=== PATIENT | male | born 1945 | race Caucasian/White ===

== ENCOUNTER 2021-08-12 15:08 | Observation (INO) | payer BC, MEDICARE, SELFPAY ==
[2021-08-12] VITALS (8 sets, daily range): BP systolic 121–148; BP diastolic 67–92; PULSE 74–89; RESP 13–18; TEMP 36.7–37.5; O2SAT 95–96; BMI 25.3; BMI 22.8
--- NOTE | 2021-08-12 16:02 | EKG12_ITS ---
Test Reason : AMS Blood Pressure : / mmHG Vent. Rate : 084 BPM Atrial Rate : 084 BPM P-R Int : 134 ms QRS Dur : 078 ms QT Int : 350 ms P-R-T Axes : 030 032 026 degrees QTc Int : 413 ms Normal sinus rhythm Normal ECG Confirmed by SAURAV BIRMINGHAM MD ([id number]), associate editor JOSE HA ([id number]) on 08/18/2021 11:16:44 AM Referred By: PL Confirmed By:SAURVA BIRMINGHAM MD
--- NOTE | 2021-08-12 16:08 | EDS_ITS ---
HPI History of Present Illness Chief Complaint: Alt LOC Narrative Narrative: 76-year-old male presenting with his daughter for evaluation. Apparently he has been ill for the last 9 days. He tested positive for Covid last night at home with a rapid Covid test. Patient's daughter states that he had been eating and drinking fairly well and ambulating around the house. He has a cough and recurrent fever which is low-grade. This does respond to antipyretics. Patient is not reporting any chest pain. His daughter states that over the last 24 hours he has been worse. He seems generally weak. He is unable to get off of the toilet this afternoon. He has not had any nausea or vomiting. His last full meal was last evening. He denies any urinary complaints. He had diarrhea but this resolved. PFSH PFSH Allergy/AdvReac Type Severity Reaction Status Date / Time No Known Allergies Allergy Verified 08/12/21 15:15 Social History Smoking Status: Former smoker ROS ROS ED Constitutional Constitutional ED: Reports chills and fever(s) Eyes Eyes: Denies blurry vision or diplopia ENT ENT ED: Reports rhinorrhea Cardiovascular Cardiovascular: Denies chest pain or palpitations Respiratory/Chest Respiratory/Chest: Reports cough and dyspnea Gastrointestinal Gastrointestinal: Reports diarrhea; Denies abdominal pain, nausea or vomiting Genitourinary Genitourinary ED: Denies dysuria or hematuria Musculoskeletal Musculoskeletal: Reports myalgias; Denies arthralgias Integumentary Denies Abrasions or rash Neurologic Neurologic: Reports headache(s); Denies paresthesias or weakness EXAM Physical Exam Const Vital Signs: 08/12/21 15:09 08/12/21 15:13 08/12/21 15:27 Temperature 99.5 F H 99.5 F H Temperature Source Oral Oral Pulse Rate 85 87 Respiratory Rate 18 18 Respiratory Effort Normal Non-Labored Respiratory Pattern Normal Blood Pressure 127/70 H 127/70 H Blood Pressure Mean 89 89 Pulse Ox 96 96 Oxygen Delivery Method Room Air Room Air Oxygen Flow Rate (L/min) 08/12/21 16:23 08/12/21 18:12 08/12/21 20:26 Temperature 98.9 F 99.1 F Temperature Source Oral Oral Pulse Rate 83 89 80 Respiratory Rate 15 17 16 Respiratory Effort Respiratory Pattern Blood Pressure 131/69 H 142/87 H 148/92 H Blood Pressure Mean 89 105 110 Pulse Ox 95 96 95 Oxygen Delivery Method Warm Humidified Isolette Room Air Nasal Cannula Oxygen Flow Rate (L/min) 3 Positive well nourished General Appearance ED: NAD; Negative for pallor HEENT Reports dry mucous membranes atraumatic Mouth ED: Yes dry mucous membranes Mouth: dry mucous membranes Eyes PERRL and EOMs intact bilaterally Neck no lymphadenopathy, supple and no meningeal signs Resp normal respiratory effort Cardio regular rate and regular rhythm GI non-tender and non-distended Palpation: soft Psych mental status grossly normal Thought Process: normal thought process Skin General Skin Exam: Negative for jaundice or pallor Lesions: no lesions Rashes: no rashes MDM MDM MDM Narrative Medical decision making narrative: Patient presenting with confusion and fatigue. He is currently diagnosed with COVID-19. I obtained an EKG which is sinus rhythm with ventricular rate of 4 bpm without sign of ischemic change. Lungs are mostly clear to auscultation with some mild basilar crackles. No wheezing. Chest x-ray on my interpretation shows mild bilateral patchy infiltrates. Patient not requiring supplemental oxygen and his other vital signs are stable. Patient is leukopenic and lymphopenic. Patient's hemoglobin is 11.6 and I do not have a comparison for this. Platelets are also low at 77 and again I do not have a comparison. Creatinine slightly elevated 1.32 and BUN/creatinine ratio is elevated. Patient was given 500 cc of IV fluids. Lactic acid is negative at 1.4. LFTs are unremarkable. High-sensitivity troponin is 16. Based on patient's confusion and weakness I did discuss the patient with the hospitalist who will admit him for observation. Patient stable admission to floor. Impression: 1. COVID-19 pneumonitis 2. Delirium Lab Data Labs: Laboratory Results - last 24 hr 08/12/21 08/12/21 08/12/21 16:18 16:18 16:18 WBC 1.9 L RBC 3.09 L Hgb 11.6 L Hct 33.3 L MCV 107.8 H MCH 37.5 H MCHC 34.8 RDW Std Deviation 51.4 H RDW Coeff of Sebastian 13.0 Plt Count 77 L MPV 10.4 Immature Gran % (Auto) 0.500 Neut % (Auto) 76.0 H Lymph % (Auto) 17.8 L [place] % (Auto) 5.2 Eos % (Auto) 0.0 Baso % (Auto) 0.5 Absolute Neuts (auto) 1.5 L Absolute Lymphs (auto) 0.34 L Nucleated RBC % 0 Differential Comment SEE COMMENT Diff Path Review May foll Platelet Estimate MOD DEC RBC Morphology N CHROM Anisocytosis 1+ Macrocytosis 2+ Ovalocytes RARE Sodium 132 L Potassium 4.0 Chloride 100 Carbon Dioxide 24.0 Anion Gap 8 BUN 34 H Creatinine 1.32 H Estim Creat Clear Calc 43.12 Est GFR (MDRD) Af Amer 67 Est GFR (MDRD) Non-Af 56 L BUN/Creatinine Ratio 25.8 H Glucose 108 H Lactic Acid 1.4 Calcium 7.9 L Total Bilirubin 0.80 AST 82 H ALT 37 Alkaline Phosphatase 44 L Troponin I High Sens 16 Total Protein 6.7 Albumin 3.1 L Globulin 3.6 Albumin/Globulin Ratio 0.9 Radiography Diagnostic Testing: Clinical Impression(s) from Imaging Studies Chest X-Ray 08/12/21 16:42 IMPRESSION: Subtle patchy airspace opacities in the bilateral lower lobes may represent infection and/or edema. Electronically Signed: Morgan Gaviria MD at 17:30 EST Tel , Service support , Discharge Plan Triage Chief Complaint: Alt LOC ED Provider: Chris Saleh Dx/Rx/DC Orders Primary Care Provider: Sulaiman Chatman
[2021-08-12 16:28] LABS: Absolute Lymphocyte Count 0.34 X10^3/uL (0.83-4.51); Absolute Neutrophil Count 1.5 X10^3/uL (2.0-7.7); Basophil# 0.01 X10^3/uL; Basophil% 0.5 % (0-1); Hematocrit 33.3 % (40-54); Hemoglobin 11.6 g/dL (13.0-16.5); Lymphocyte # 0.34 X10^3/ul (0.83-4.51); Lymphocyte % 17.8 % (19-41); Mean Corp Hgb Conc 34.8 g/dL (32-36); Mean Corpuscular Hgb 37.5 pg (27.0-32.0); Mean Corpuscular Volume 107.8 fL (80-94); Mean Platelet Vol. 10.4 fl (6.2-12.0); Monocyte% 5.2 % (0-10); NRBC Flagged by Analyzer 0 % (0-5); Neutrophil # 1.45 X10^3/uL (2.7-7.7); POSITIVE COUNT YES; POSITIVE DIFFERENTIAL YES; POSITIVE MORPHOLOGY YES; Platelet Count 77 K/mm3 (150-450); RBC Distribution Width SD 51.4 fl (35.1-43.9); Red Blood Count 3.09 M/mm3 (4.6-6.2); White Blood Count 1.9 K/mm3 (4.4-11.0)
[2021-08-12 16:29] LABS: Differential Indicated SCAN CRITERIA MET
--- NOTE | 2021-08-12 16:42 | RAD_ITS ---
INDICATION: cough EXAMINATION/TECHNIQUE: X-RAY - XR Chest 1 View COMPARISON: None. FINDINGS: Subtle patchy airspace opacities in the bilateral lower lobes. The cardiomediastinal silhouette is unremarkable. No pleural effusion or pneumothorax. No acute osseous abnormalities. RAD/Chest 1 View (Portable) IMPRESSION: Subtle patchy airspace opacities in the bilateral lower lobes may represent infection and/or edema. Electronically Signed: Morgan Gaviria MD at 17:30 EST Tel , Service support ,
[2021-08-12 16:46] LABS: ALB/GLOB Ratio 0.9 RATIO (0.9-2.4); AST(SGOT) 82 U/L (15-37); Alanine Aminotransfer ALT/SGPT 37 U/L (16-61); Albumin, Serum 3.1 g/dL (3.2-5.0); Alkaline Phosphatase 44 U/L (45-117); Anion Gap 8 (5-15); BUN 34 mg/dL (7-18); BUN/Creat Ratio 25.8 RATIO (10-20); Calcium,Total 7.9 mg/dL (8.5-10.1); Chloride 100 mmol/L (98-107); Creatinine, Serum 1.32 mg/dL (0.70-1.30); EST Glomerular Filtration Rate 56 mL/min (>60); Est Glom Filt Rate - Afr Amer 67 mL/min (>60); Estimated Creatinine Clearance 43.12 ml/min; Globulin 3.6 g/dL (2.2-4.2); Glucose 108 mg/dL (74-106); Protein, Total 6.7 g/dL (6.4-8.2); Sodium Level 132 mmol/L (136-145); Troponin-I HS 16 pg/mL (3.0-78.0)
[2021-08-12 16:56] LABS: Lactic Acid 1.4 mmol/L (0.4-1.9)
[2021-08-12 17:00] LABS: Anisocytosis 1+; Platelet Estimate MOD DEC (ADEQ); Red Cell Morphology N CHROM NORMAL (NORM C&C)
[2021-08-12 17:01] LABS: Macrocytosis 2+; Ovalocyte RARE
--- NOTE | 2021-08-12 22:12 | PCS.PANDOC ---
PANDEMIC DOCUMENTATION INITIATED: Date: 03/29/2021 Time: 190
--- NOTE | 2021-08-13 01:20 | HP.PCM.HOS_ITS ---
HPI - General General Date of Admission: 08/12/21 HPI Narrative JOANNE ROSALES, is a 76 M who presents for evaluation of new onset delirium and weakness today. He has been ill for 9 days and did take it Covid test at home yesterday which returned positive. The patient lives at home and has been eating and drinking okay and was able to eat a regular meal last night however he did decline over the last day. He does not have any chest pain or trouble urinating. Did have diarrhea previously but does not have any now. He was admitted due to family concerns. 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 Upon work-up in the ED the patient did have a neutropenia of 1.9 which is typical for Covid. He had a hemoglobin of 11.6 with thrombocytopenia of 77, however baseline is unknown. His hyponatremia of 132 was also noted. PENDING SALE TO [facility] Medical History (Updated 08/13/21 @ 01:[address] Freddy Seth MD) Asthma Allergy/AdvReac Type Severity Reaction Status Date / Time No Known Allergies Allergy Verified 08/12/21 15:15 Social History Smoking Status: Former smoker ROS ROS Narrative no fevers/chills/cough/sob/cp/racing. No diarrhea but had history diarrhea. no trouble seeing hearing swallowing. No abdominal pain. No shortness of breath. Poor appetite. no falls or syncope. Vital Signs Vital Signs Vital Signs: 08/12/21 15:09 08/12/21 15:13 08/12/21 15:27 Temperature 99.5 F H 99.5 F H Temperature Source Oral Oral Pulse Rate 85 87 Respiratory Rate 18 18 Respiratory Effort Normal Non-Labored Respiratory Depth Respiratory Pattern Normal Blood Pressure 127/70 H 127/70 H Blood Pressure Mean 89 89 Blood Pressure Source Blood Pressure Position Blood Pressure Location Pulse Ox 96 96 Oxygen Delivery Method Room Air Room Air Oxygen Flow Rate (L/min) 08/12/21 16:23 08/12/21 18:12 08/12/21 20:26 Temperature 98.9 F 99.1 F Temperature Source Oral Oral Pulse Rate 83 89 80 Respiratory Rate 15 17 16 Respiratory Effort Respiratory Depth Respiratory Pattern Blood Pressure 131/69 H 142/87 H 148/92 H Blood Pressure Mean 89 105 110 Blood Pressure Source Blood Pressure Position Blood Pressure Location Pulse Ox 95 96 95 Oxygen Delivery Method Warm Humidified Isolette Room Air Nasal Cannula Oxygen Flow Rate (L/min) 3 08/12/21 21:16 08/12/21 22:45 08/12/21 22:47 Temperature 98.2 F 98.1 F Temperature Source Oral Oral Pulse Rate 79 74 Respiratory Rate 13 18 Respiratory Effort Normal Non-Labored Respiratory Depth Normal Respiratory Pattern Normal Blood Pressure 148/79 H 121/67 H Blood Pressure Mean 102 85 Blood Pressure Source Monitor Blood Pressure Position Semi-Fowlers Blood Pressure Location Left Arm Pulse Ox 96 96 96 Oxygen Delivery Method Nasal Cannula Room Air Room Air Oxygen Flow Rate (L/min) 3 Weight Weight: 155 lb 3.287 oz Body Mass Index (BMI) 22.8 Physical Exam Const alert General Appearance: cooperative HEENT normocephalic and head/scalp atraumatic Eyes PERRL and EOMs intact bilaterally Neck no lymphadenopathy Resp normal respiratory effort Cardio regular rate and regular rhythm GI normal to inspection, nondistended, normoactive bowel sounds, soft to palpation and non-tender Extremity normal to inspection Skin no rashes or lesions noted and no wounds Neuro Sensorium / Orientation: awake, alert and oriented to person Speech: speech normal Motor Exam: strength 5/5 throughout Psych affect normal Results Lab / Micro Data Result Diagrams: 08/12/21 16:18 08/12/21 16:18 Labs: Laboratory Results - last 24 hr 08/12/21 16:18: WBC 1.9 L, RBC 3.09 L, Hgb 11.6 L, Hct 33.3 L, MCV 107.8 H, MCH 37.5 H, MCHC 34.8, RDW Std Deviation 51.4 H, RDW Coeff of Sebastian 13.0, Plt Count 77 L, MPV 10.4, Immature Gran % (Auto) 0.500, Neut % (Auto) 76.0 H, Lymph % (Auto) 17.8 L, [place] % (Auto) 5.2, Eos % (Auto) 0.0, Baso % (Auto) 0.5, Absolute Neuts (auto) 1.5 L, Absolute Lymphs (auto) 0.34 L, Nucleated RBC % 0, Differential Comment SEE COMMENT, Diff Path Review May foll, Platelet Estimate MOD DEC, RBC Morphology N CHROM, Anisocytosis 1+, Macrocytosis 2+, Ovalocytes RARE 08/12/21 16:18: Sodium 132 L, Potassium 4.0, Chloride 100, Carbon Dioxide 24.0, Anion Gap 8, BUN 34 H, Creatinine 1.32 H, Estim Creat Clear Calc 43.12, Est GFR (MDRD) Af Amer 67, Est GFR (MDRD) Non-Af 56 L, BUN/Creatinine Ratio 25.8 H, Glucose 108 H, Calcium 7.9 L, Total Bilirubin 0.80, AST 82 H, ALT 37, Alkaline Phosphatase 44 L, Troponin I High Sens 16, Total Protein 6.7, Albumin 3.1 L, Globulin 3.6, Albumin/Globulin Ratio 0.9 08/12/21 16:18: Lactic Acid 1.4 Micro: Microbiology 08/12/21 16:16 Nasal Secretion SARS-CoV-2 Antigen (Rapid) - Final SARS-CoV-2 (COVID 19) Radiology Impression Chest X-Ray 08/12/21 16:42 IMPRESSION: Subtle patchy airspace opacities in the bilateral lower lobes may represent infection and/or edema. Electronically Signed: Morgan Gaviria MD at 17:30 EST Tel , Service support , Assessment & Plan Assessment/Plan (1) Acute delirium: (2) COVID: (3) Generalized weakness: PLAN: Acute delerium due to COVID Generalized weakness. -No focal deficits -Patient was admitted due to family concerns about taking care of him at home -Does not appear toxic. -Fall precautions -Physical therapy, Occupational Therapy, and case management -Check urinalysis -Chest x-ray with a very small possibility of pneumonia however this is likely due to Covid and will hold on antibiotics at this time -Continue contact precautions -Not requiring oxygen at this time, no indication for dexamethasone -Tylenol & Zofran prn -intensive nutritional support -Give 500 ml IV NS fluid on floor. Hyponatremia, asymptomatic -This is likely due to decreased p.o. intake -Monitor status post fluid resuscitation in the ED Thrombocytopenia -Monitor daily CBC and avoid heparin. Elevated Cr - monitor s/p fluid. May have underlying CKD Full code Full diet Lovenox 40 mg daily Freddy Seth MD Charges/Coding Visit Charges OBSV E&M: 48334 Initial observation care L2
[2021-08-13 03:59] VITALS: BP 124/70; PULSE 79; RESP 18; TEMP 37.6; O2SAT 95
[2021-08-13 04:00] VITALS: O2SAT 95
[2021-08-13 06:34] LABS: Absolute Neutrophil Count 0.9 X10^3/uL (2.0-7.7); Hematocrit 31.5 % (40-54); Hemoglobin 11.5 g/dL (13.0-16.5); Lymphocyte % 39.5 % (19-41); Mean Corp Hgb Conc 36.5 g/dL (32-36); Mean Corpuscular Hgb 38.9 pg (27.0-32.0); Mean Corpuscular Volume 106.4 fL (80-94); Monocyte# 0.18 X10^3/uL; Monocyte% 10.2 % (0-10); NRBC Flagged by Analyzer 0 % (0-5); Neutrophil # 0.87 X10^3/uL (2.7-7.7); Neutrophil % 49.2 % (47-70); POSITIVE COUNT YES; POSITIVE DIFFERENTIAL YES; Platelet Count 67 K/mm3 (150-450); RBC Distribution Width SD 50.6 fl (35.1-43.9); Red Blood Count 2.96 M/mm3 (4.6-6.2); White Blood Count 1.8 K/mm3 (4.4-11.0)
[2021-08-13 06:49] LABS: Differential Indicated SCAN CRITERIA MET
[2021-08-13 06:51] LABS: Atypical Lymphocyte 1+ %
[2021-08-13 06:59] LABS: Anion Gap 5 (5-15); BUN 25 mg/dL (7-18); BUN/Creat Ratio 22.9 RATIO (10-20); Chloride 103 mmol/L (98-107); Creatinine, Serum 1.09 mg/dL (0.70-1.30); EST Glomerular Filtration Rate 70 mL/min (>60); Est Glom Filt Rate - Afr Amer 84 mL/min (>60); Estimated Creatinine Clearance 55.62 ml/min; Glucose 101 mg/dL (74-106); Potassium 4.1 mmol/L (3.5-5.1); Sodium Level 133 mmol/L (136-145)
[2021-08-13 07:07] LABS: Bacteria 0 SEEN /hpf (None Seen); Mucous, Urine 0 SEEN /hpf (<or=2+); Red Blood Cells-Urine 0 SEEN /hpf (0-5); Squamous Epithelial Cells - UA 0 SEEN /hpf (0-5); White Blood Cells 0 SEEN /hpf (0-5)
[2021-08-13 07:11] LABS: Color, Urine Yellow (Yellow); Glucose, Dipstick Normal (Normal); Ketone-Dipstick 5 mg/dl (Negative); Leukocyte Esterase-Dipstick Negative /ul (Negative); Nitrite-Dipstick Negative (Negative); Occult Blood-Urine 25 /ul (Negative); Protein-Dipstick Negative (Negative); Urine Bilirubin Dipstick Negative (Negative); Urine Clarity Clear (Clear); Urine Urobilinogen Normal (Normal)
[2021-08-13 10:00] VITALS: BP 129/78; PULSE 76; RESP 16; TEMP 36.9; O2SAT 96
[2021-08-13] MEDS: 0.9% Normal Saline 1,000 ML 100 ML IV ×2 (10:39→20:38)
[2021-08-13] MEDS: Enoxaparin 40 MG/0.4 ML Syringe SC (10:39)
[2021-08-13] MEDS: 0.9% Saline Lock 10 ML Syringe IV (10:45)
--- NOTE | 2021-08-13 13:25 | CASEMGMT ---
RN CM BANQUET WAITER/WAITRESS YOLY placed call to pt's daughter, Nayely, for initial transition planning/care coordination assessment d/t pt having intermittent confusion. ORQUIDEA FREDERICK introduced self and role at [facility]. Care providers, pharmacy, and demographics verified/updated at this time. Pt tested + COVID @ [facility] PCP: Dr Chatman Specialists: none Preferred Pharmacy: [facility] Insurance: Dtr states [place] is primary and [employer] is secondary. Pt just retired from the [employer] in December and dtr states The paperwork is stuck somewhere so they are not showing he is technically retired. TC to registration and notified of same. Pt also has VA benefits. Prescription Benefit: Yes Living Will/HPOA: Pt does not currently have LW/HCPOA. Dtr made aware pt can complete at a later time once confusion resolved if he would like to. Aware he can meet w/SW as an OP as well. LNOK:Dtr, Nayely. Son, Homar Living Arrangements: Lives alone in one-story home w/2-3 steps to enter. Was independent prior to recent COVID illness. Dtr states either her or her brother can stay w/pt / if needed. Transportation: Pt, family DME: Has the following DME: walker. No O2. Dtr denies having preference of DME co if pt qualifies for O2 @ discharge. HHC/SNF:No hx of either. Dtr states they prefer to take pt home, if able, but may be receptive to SNF, if needed. Dtr also made aware, if pt able to return home and if HHC is desired, to f/u w/PCP, as HHC is unable to be arranged on a Holiday weekend. She voices understanding. PT/OT evals pending. List of local HHC agencies given to nurse to take into pt's room so pt and family have for reference. PLAN: TBD. PT/OT evals pending. Jean Pierre MCLEOD RN, CM
[2021-08-13 18:35] VITALS: O2SAT 96
[2021-08-13 18:43] VITALS: BP 128/61; PULSE 78; RESP 18; TEMP 37.1; O2SAT 96
--- NOTE | 2021-08-13 19:36 | PCM.HOSP.N ---
Hospitalist Note Patient was seen and examined briefly today, I talked with his daughter by phone today, she indicated that prior to getting COVID-19 her father had been very active and independent at home. Patient will be seen by PT and OT and hopefully patient will be able to return home rather than go to an extended care facility.
[2021-08-13 20:40] VITALS: BP 145/72; PULSE 81; RESP 18; TEMP 36.8; O2SAT 96
[2021-08-14 03:26] VITALS: BP 129/66; PULSE 76; RESP 18; TEMP 36.9; O2SAT 94
[2021-08-14] MEDS: 0.9% Normal Saline 1,000 ML 100 ML IV ×2 (03:31→14:26)
[2021-08-14 06:00] LABS: Absolute Lymphocyte Count 0.91 X10^3/uL (0.83-4.51); Absolute Neutrophil Count 0.6 X10^3/uL (2.0-7.7); Basophil# 0.01 X10^3/uL; Basophil% 0.6 % (0-1); Eosinophil# 0.01 X10^3/uL; Eosinophils% 0.6 % (0-5); Hematocrit 30.7 % (40-54); Lymphocyte # 0.91 X10^3/ul (0.83-4.51); Lymphocyte % 55.8 % (19-41); Mean Corp Hgb Conc 35.8 g/dL (32-36); Mean Corpuscular Hgb 38.2 pg (27.0-32.0); Mean Corpuscular Volume 106.6 fL (80-94); Mean Platelet Vol. 9.9 fl (6.2-12.0); Monocyte# 0.12 X10^3/uL; Monocyte% 7.4 % (0-10); NRBC Flagged by Analyzer 0 % (0-5); Neutrophil # 0.57 X10^3/uL (2.7-7.7); POSITIVE COUNT YES; POSITIVE DIFFERENTIAL YES; POSITIVE MORPHOLOGY YES; Platelet Count 59 K/mm3 (150-450); RBC Distribution Width CV 12.8 % (11.6-14.6); RBC Distribution Width SD 49.6 fl (35.1-43.9); Red Blood Count 2.88 M/mm3 (4.6-6.2); White Blood Count 1.6 K/mm3 (4.4-11.0)
[2021-08-14 06:09] LABS: Differential Indicated SCAN CRITERIA MET
[2021-08-14 06:41] LABS: Anion Gap 7 (5-15); BUN 21 mg/dL (7-18); BUN/Creat Ratio 21.4 RATIO (10-20); Calcium,Total 7.4 mg/dL (8.5-10.1); Chloride 106 mmol/L (98-107); Creatinine, Serum 0.98 mg/dL (0.70-1.30); EST Glomerular Filtration Rate 79 mL/min (>60); Est Glom Filt Rate - Afr Amer 95 mL/min (>60); Estimated Creatinine Clearance 61.86 ml/min; Glucose 91 mg/dL (74-106); Potassium 3.5 mmol/L (3.5-5.1); Sodium Level 135 mmol/L (136-145)
[2021-08-14 07:34] LABS: Platelet Estimate MKD DEC (ADEQ)
[2021-08-14 10:29] VITALS: BP 114/62; PULSE 76; RESP 16; TEMP 36.6; O2SAT 95
[2021-08-14 10:32] VITALS: O2SAT 95
[2021-08-14] MEDS: Enoxaparin 40 MG/0.4 ML Syringe SC (11:49)
[2021-08-14 14:19] VITALS: BP 114/62; PULSE 75; RESP 16; TEMP 36.4; O2SAT 95
--- NOTE | 2021-08-14 15:57 | PCM.PN.HOSP ---
Subjective Subjective Patient was seen and examined today, he did not do well with physical therapy and occupational therapy, it was recommended he have further therapy. I do not feel the patient is safe to go home at this point and I will continue IV fluids and he will be evaluated by PT and OT tomorrow. Objective Data Objective Data Vital Signs: Vital Signs Temp Pulse Resp BP Pulse Ox 97.5 F L 75 16 114/62 95 08/14/21 14:19 08/14/21 14:19 08/14/21 14:19 08/14/21 14:19 08/14/21 14:19 Oxygen Flow Rate (L/min) 3 Oxygen Delivery Method Room Air Weight: 70.4 kg Body Mass Index (BMI) 22.8 Intake & Output: Intake and Output for Last 24 Hours 08/12/21 08/13/21 08/14/21 23:59 23:59 23:59 Intake Total 500 / 500 1738.33 / 1738.33 1688.33 / 1688.33 Output Total 1000 / 1000 1400 / 1400 Balance 500 / 500 738.33 / 738.33 288.33 / 288.33 Medical Nutrition Assessment Dietitian: Malnutrition Criteria Met Start: 08/13/21 13:40 Freq: Status: Active Protocol: Document 08/13/21 13:40 AG (Rec: 08/13/21 13:40 AG [id number]) Nutrition Malnutrition Evidence of Malnutrition Exists Yes Malnutrition (severe): Acute Illness/Injury Evidenced By Suboptimal Energy Intake ( Severe),Weight Loss (Severe) Clinical Problem Acute Disease or Injury Related Malnutrition Etiology severe, acute malnutrition r/t inadequate energy intake d/t acute illness Signs/Symptoms as evidenced by unintentional wt loss of 4.8#/3% x 1 week, estimated PO intake meeting 50 -75% of estimated energy needs x 1 week Status Active Problem Recommendation Dietitian Recommendations/Changes regular diet, continue ensure compact TID for additional calories/protein if consumed. Lab / Micro Data Result Diagrams: 08/14/21 04:19 08/14/21 04:19 Labs: Laboratory Results - last 24 hr 08/14/21 04:19: Sodium 135 L, Potassium 3.5, Chloride 106, Carbon Dioxide 22.0, Anion Gap 7, BUN 21 H, Creatinine 0.98, Estim Creat Clear Calc 61.86, Est GFR (MDRD) Af Amer 95, Est GFR (MDRD) Non-Af 79, BUN/Creatinine Ratio 21.4 H, Glucose 91, Calcium 7.4 L 08/14/21 04:19: WBC 1.6 L, RBC 2.88 L, Hgb 11.0 L, Hct 30.7 L, MCV 106.6 H, MCH 38.2 H, MCHC 35.8, RDW Std Deviation 49.6 H, RDW Coeff of Sebastian 12.8, Plt Count 59 L, MPV 9.9, Immature Gran % (Auto) 0.600, Neut % (Auto) 35.0 L, Lymph % (Auto) 55.8 H, [place] % (Auto) 7.4, Eos % (Auto) 0.6, Baso % (Auto) 0.6, Absolute Neuts (auto) 0.6 L, Absolute Lymphs (auto) 0.91, Nucleated RBC % 0, Platelet Estimate MKD JUL Micro: Microbiology 08/12/21 16:16 Nasal Secretion SARS-CoV-2 Antigen (Rapid) - Final SARS-CoV-2 (COVID 19) Physical Exam Const alert, oriented x3 and no apparent distress Constitutional Narrative: Patient does not appear to be in any distress, he is somewhat slow to respond to questions. General Appearance: cooperative, well kempt and well developed Orientation / Consciousness: awake, oriented to person, oriented to place and oriented to time HEENT normocephalic, head/scalp atraumatic and moist oral mucous membranes Head and Scalp: normocephalic Eyes PERRL, EOMs intact bilaterally and conjunctivae normal Neck nuchal rigidity, supple, no JVD, thyroid normal and no carotid bruits General: trachea midline Resp normal respiratory effort, no retractions, no use of accessory muscles and clear to auscultation bilaterally Auscultation: Negative for rales, rhonchi or wheezes Cardio regular rate, regular rhythm, S1 normal heart sound, S2 normal heart sound, no murmurs, no rub and no gallops GI normal to inspection, nondistended, normoactive bowel sounds, soft to palpation, non-tender and non-distended Extremity no clubbing, cyanosis or edema Skin no rashes or lesions noted General Skin Exam: no breakdown Neuro oriented x3, CN's II-XII intact bilaterally, no focal motor deficits and no sensory deficits noted Sensorium / Orientation: awake and alert Speech: speech normal Psych Psych Narrative: Patient has flat affect Assessment & Plan Assessment/Plan (1) COVID: PLAN: 1. COVID-19 infection-there is no treatment indicated at this time, patient does not have hypoxia. #2 metabolic encephalopathy secondary to COVID-19-PT and OT will work with patient #3 acute debility secondary to COVID-19 infection-PT and OT will work with the patient Charges/Coding Visit Charges OBSV E&M: 27591 Subsequent observation care L3
[2021-08-14 19:21] VITALS: O2SAT 96
[2021-08-14 20:56] VITALS: BP 139/83; PULSE 75; RESP 18; TEMP 36.5; O2SAT 95
[2021-08-15] MEDS: 0.9% Normal Saline 1,000 ML 100 ML IV (01:29)
[2021-08-15 01:30] VITALS: BP 137/73; PULSE 76; RESP 18; TEMP 36.6; O2SAT 95
[2021-08-15 05:18] VITALS: BP 131/86; PULSE 78; RESP 18; TEMP 36.6; O2SAT 94
[2021-08-15 06:59] LABS: Absolute Lymphocyte Count 0.83 X10^3/uL (0.83-4.51); Absolute Neutrophil Count 0.9 X10^3/uL (2.0-7.7); Basophil# 0.01 X10^3/uL; Basophil% 0.5 % (0-1); Eosinophil# 0.04 X10^3/uL; Eosinophils% 2.1 % (0-5); Hematocrit 31.3 % (40-54); Hemoglobin 11.2 g/dL (13.0-16.5); Lymphocyte # 0.83 X10^3/ul (0.83-4.51); Lymphocyte % 43.5 % (19-41); Mean Corp Hgb Conc 35.8 g/dL (32-36); Mean Corpuscular Hgb 37.8 pg (27.0-32.0); Mean Corpuscular Volume 105.7 fL (80-94); Mean Platelet Vol. 10.9 fl (6.2-12.0); Monocyte# 0.16 X10^3/uL; Monocyte% 8.4 % (0-10); NRBC Flagged by Analyzer 0 % (0-5); Neutrophil # 0.86 X10^3/uL (2.7-7.7); POSITIVE COUNT YES; POSITIVE DIFFERENTIAL YES; POSITIVE MORPHOLOGY YES; Platelet Count 64 K/mm3 (150-450); RBC Distribution Width CV 12.9 % (11.6-14.6); RBC Distribution Width SD 50.4 fl (35.1-43.9); Red Blood Count 2.96 M/mm3 (4.6-6.2); White Blood Count 1.9 K/mm3 (4.4-11.0)
[2021-08-15 07:19] LABS: Anion Gap 6 (5-15); BUN 20 mg/dL (7-18); Calcium,Total 8.1 mg/dL (8.5-10.1); Chloride 110 mmol/L (98-107); Creatinine, Serum 0.95 mg/dL (0.70-1.30); EST Glomerular Filtration Rate 81 mL/min (>60); Est Glom Filt Rate - Afr Amer 98 mL/min (>60); Estimated Creatinine Clearance 63.81 ml/min; Glucose 96 mg/dL (74-106); Potassium 3.6 mmol/L (3.5-5.1); Sodium Level 138 mmol/L (136-145)
[2021-08-15 07:33] LABS: Differential Indicated SCAN CRITERIA MET
[2021-08-15 07:39] VITALS: BP 119/77; PULSE 70; RESP 16; TEMP 36.6; O2SAT 95
[2021-08-15 08:47] LABS: Macrocytosis 1+; Platelet Estimate MKD DEC (ADEQ)
[2021-08-15] MEDS: Enoxaparin 40 MG/0.4 ML Syringe SC (09:49)
[2021-08-15 12:39] VITALS: O2SAT 94
--- NOTE | 2021-08-15 14:36 | PCM.DC ---
Discharge Instructions Diet Discharge Diet: No restrictions Activity Discharge Activity: Return to Normal Activity Weight Bearing Status: Full weight bearing Follow Up Care Test Results: Test results from this visit will be discussed in further detail at your follow-up appointment, if applicable. Discharge Plan Admission Admit Date/Time: 08/13/21 00:58 Primary Reason for Your Visit: debility from COVID 19 Attending Provider: Gopal Rae Primary Care Provider: Sulaiman Chatman Discharge Orders/Prescriptions Referrals / Follow Up: Sulaiman Chatman MD [Primary Care Provider] - Within 2 Weeks Disposition Disposition (needs filled in before D/C Order can be placed): Home, Self Care
--- NOTE | 2021-08-15 14:38 | PCM.DC.SUM ---
Providers Date of Admission: 08/13/21 Date of Discharge: 08/15/21 Primary Care Physician: Dr. Sulaiman Chatman MD Reason For Visit: ACUTE ENCEPHALOPATHY DUE TO COVID Diagnosis Discharge Diagnosis (1) COVID: Status: Acute Code(s): U07.1 - COVID-19 Plan: 1 COVID-19 infection with pneumonia #2 metabolic encephalopathy secondary to COVID-19 infection #3 acute debility secondary to COVID-19 infection #4 Severe protein and caloric malnutrition as evidenced by unintentional weight loss of 4.8 pounds in 1 week with estimated p.o. intake meeting 50 to 75% of estimated energy needs x1 week, patient was placed on a regular diet and given Ensure compact for additional calories #5 neutropenia secondary to COVID-19 infection Hospital Course Operations None Procedures None Summary of Care Provided Minutes Spent on Discharge: 31 Hospital Course: This 76-year-old white male was seen in the emergency room at [facility] with a chief complaint of severe fatigue, patient tested positive for Covid 19 at home using a rapid test. Patient denied any shortness of breath and he denied any chest pain. Chest x-ray obtained showed mild bilateral patchy infiltrates, patient did not require supplemental oxygen however, patient was neutropenic and his hemoglobin was 11.6. Platelet count was 77,000. Patient was admitted to [place] [address], he was seen in consultation by PT and OT, he was given IV fluids, he did not require oxygen during his hospitalization. On 08/15/2021, patient was seen and examined: On examination he appeared in good health and spirits. Vital signs as documented. Skin warm and dry and without overt rashes. Neck without JVD, neck was supple, trachea midline, thyroid was normal. Lungs clear bilaterally, normal air movement was noted. Heart exam notable for regular rhythm, normal sounds and absence of murmurs, rubs or gallops. Abdomen unremarkable and without evidence of organomegaly, masses, or abdominal aortic enlargement. Bowel sounds are present, abdomen is not distended. Extremities nonedematous, no cyanosis was noted, no clubbing was noted. Neuro: Cranial nerves II through XII are grossly intact, no focal motor deficits were noted, sensation to light touch and pinprick intact, motor exam 5/5 throughout. Psych: Patient is alert and oriented x3, he does not appear anxious or depressed, he does not appear agitated. On 08/15/2021, patient was felt to be stable for discharge home. Medical Records Data Medical Nutrition Assessment Dietitian: Malnutrition Criteria Met Start: 08/13/21 13:40 Freq: Status: Active Protocol: Document 08/13/21 13:40 AG (Rec: 08/13/21 13:40 AG [id number]) Nutrition Malnutrition Evidence of Malnutrition Exists Yes Malnutrition (severe): Acute Illness/Injury Evidenced By Suboptimal Energy Intake ( Severe),Weight Loss (Severe) Clinical Problem Acute Disease or Injury Related Malnutrition Etiology severe, acute malnutrition r/t inadequate energy intake d/t acute illness Signs/Symptoms as evidenced by unintentional wt loss of 4.8#/3% x 1 week, estimated PO intake meeting 50 -75% of estimated energy needs x 1 week Status Active Problem Recommendation Dietitian Recommendations/Changes regular diet, continue ensure compact TID for additional calories/protein if consumed. Weight / BMI Weight Weight: 70.4 kg Body Mass Index (BMI) 22.8 ABG / Lab / Microbiology Data Result Diagrams: 08/15/21 06:07 08/15/21 06:07 Laboratory: Laboratory Results - last 24 hr 08/15/21 06:07: Sodium 138, Potassium 3.6, Chloride 110 H, Carbon Dioxide 22.0, Anion Gap 6, BUN 20 H, Creatinine 0.95, Estim Creat Clear Calc 63.81, Est GFR (MDRD) Af Amer 98, Est GFR (MDRD) Non-Af 81, BUN/Creatinine Ratio 21.0 H, Glucose 96, Calcium 8.1 L 08/15/21 06:07: WBC 1.9 L, RBC 2.96 L, Hgb 11.2 L, Hct 31.3 L, MCV 105.7 H, MCH 37.8 H, MCHC 35.8, RDW Std Deviation 50.4 H, RDW Coeff of Sebastian 12.9, Plt Count 64 L, MPV 10.9, Immature Gran % (Auto) 0.500, Neut % (Auto) 45.0 L, Lymph % (Auto) 43.5 H, [place] % (Auto) 8.4, Eos % (Auto) 2.1, Baso % (Auto) 0.5, Absolute Neuts (auto) 0.9 L, Absolute Lymphs (auto) 0.83, Nucleated RBC % 0, Platelet Estimate MKD DEC, Macrocytosis 1+ Microbiology: Microbiology 08/12/21 16:16 Nasal Secretion SARS-CoV-2 Antigen (Rapid) - Final SARS-CoV-2 (COVID 19) D/C Instructions Discharge Diet: No restrictions Weight Bearing Status: Full weight bearing Meaningful Use Info Meaningful Use Diagnoses (Choose all that apply): None applicable Discharge Plan Admission Admit Date/Time: 08/13/21 00:58 Primary Reason for Your Visit: debility from COVID 19 Attending Provider: Gopal Rae Primary Care Provider: Sulaiman Chatman Discharge Orders/Prescriptions Referrals / Follow Up: Sulaiman Chatman MD [Primary Care Provider] - Within 2 Weeks Disposition Disposition (needs filled in before D/C Order can be placed): Home, Self Care Charges/Coding Visit Charges Inpatient E&M: 86021 Disch Hosp
[2021-08-16 14:23] LABS: Pathologist Review Reviewed
== END 2021-08-15 15:55 | disposition home or self-care (01) ==
LOC: ED 16:20 → MS3 08-13 05:16
PROVIDERS: Admitting Provider Hospitalist; Emergency Provider Student in an Organized Health Care Education/Training Program; PCP Internal Medicine; Visit Provider Internal Medicine
DX: U07.1 COVID-19 (principal); D70.9 Neutropenia, unspecified; E43 Unspecified severe protein-calorie malnutrition; Z87.891 Personal history of nicotine dependence; E87.1 Hypo-osmolality and hyponatremia; J12.82 Pneumonia due to coronavirus disease 2019; G93.41 Metabolic encephalopathy; Z68.22 Body mass index [BMI] 22.0-22.9, adult
CPT/HCPCS: 36415; 71045; 80048; 80053; 81001; 83605; 84484; 85025; 87426; 93005; 96360; 96361; 96372; 97162; 97165; 97530; 97535; 97802; 99218; 99251; 99285; J7030; J7040; A4216; G0378; G0463